=== PATIENT | female | born 2000 | race Caucasian/White ===

== ENCOUNTER 2020-08-05 19:36 | Emergency (ER) | payer SELFPAY ==
[2020-08-05] MEDS ORDERED: NORMAL SALINE 1000 ML 1,000 ML IV ONE (21:36)
--- NOTE | 2020-08-05 21:38 | ER Document Report ---
ED Medical Screen (RME) - General Chief Complaint: Breathing Difficulty Stated Complaint: SHORTNESS OF BREATH/COUGHING/DIARRHEA/HEADACHES Time Seen by Provider: 08/05/20 21:35 Notes: Patient is a 20-year-old female who presents emergency department with a chief complaint of chest tightness. Patient reports over the past few days she has had increasing chest tightness and pain to the center of her chest. She is also reported a nonproductive cough. Patient does have a Covid test pending. Patient denies sick contacts. Patient reports she is also having urinary symptoms, does have a history of urinary tract infections and states feeling the same. Patient reports she is also had diarrhea. Reports lower abdominal pain. - Related Data Allergies/Adverse Reactions: No Known Allergies Allergy (Unverified 08/05/20 21:33) Past Medical History - Social History Chew tobacco use (# tins/day): No Frequency of alcohol use: None Drug Abuse: None Physical Exam - Vital signs Vitals: Temp Pulse Resp BP Pulse Ox 98.7 F 88 16 123/45 L 100 08/05/20 19:42 08/05/20 19:42 08/05/20 19:42 08/05/20 19:42 08/05/20 19:42 - Abdominal Inspection: Normal Distension: No distension Bowel sounds: Normal Tenderness: Tender - suprapubic ttp Organomegaly: No organomegaly Course - Re-evaluation Re-evalutation: 08/05/20 21:37 I have greeted and performed a rapid initial assessment of this patient. A comprehensive ED assessment and evaluation of the patient, analysis of test results and completion of the medical decision making process will be conducted by additional ED providers. - Vital Signs Vital signs: Temp Pulse Resp BP Pulse Ox 98.7 F 88 16 123/45 L 100 08/05/20 19:42 08/05/20 19:42 08/05/20 19:42 08/05/20 19:42 08/05/20 19:42
[2020-08-05 22:17] LABS: APPEARANCE,URINE SLIGHTLY-CLOUDY; BILIRUBIN,URINE NEGATIVE (NEGATIVE); COLOR,URINE STRAW; GLUCOSE, URINE NEGATIVE (NEGATIVE); KETONES,URINE NEGATIVE (NEGATIVE); LEUKOCYTE ESTERASE,URINE SMALL (NEGATIVE); NITRITE,URINE NEGATIVE (NEGATIVE); PROTEIN,URINE NEGATIVE (NEGATIVE); URINE SPECIFIC GRAVITY 1.008; UROBILINOGEN,URINE NEGATIVE mg/dL (<2.0)
[2020-08-05 22:36] LABS: ABSOLUTE BASOPHILS # (AUTO) 0.1 10^3/uL (0.0-0.2); ABSOLUTE EOSINOPHILS # (AUTO) 0.1 10^3/uL (0.0-0.6); ABSOLUTE LYMPHOCYTES (AUTO) 3.8 10^3/uL (0.5-4.7); ABSOLUTE MONOCYTES (AUTO) 0.7 10^3/uL (0.1-1.4); ABSOLUTE NEUT (AUTO) 5.5 10^3/uL (1.7-8.2); EOSINOPHILS % (AUTO) 1.4 % (0-6); HEMATOCRIT 40.9 % (36.0-47.0); HEMOGLOBIN 14.2 g/dL (12.0-15.5); LYMPHOCYTES % (AUTO) 37.5 % (13-45); MEAN CORPUSCULAR HEMOGLOBIN 28.6 pg (27.0-33.4); MEAN CORPUSCULAR HGB CONC 34.8 g/dL (32.0-36.0); MEAN CORPUSCULAR VOLUME 82 fl (80-97); MONOCYTES % (AUTO) 6.4 % (3-13); PLATELET COUNT 333 10^3/uL (150-450); RED BLOOD COUNT 4.98 10^6/uL (3.72-5.28); RED CELL DISTRIBUTION WIDTH 13.1 % (11.5-14.0); SEGMENTED NEUTROPHILS % (AUTO) 53.7 % (42-78); TOTAL CELLS COUNTED % (AUTO) 100 %; WHITE BLOOD COUNT 10.3 10^3/uL (4.0-10.5)
[2020-08-05 22:54] LABS: ALBUMIN 4.3 g/dL (3.5-5.0); ALKALINE PHOSPHATASE 48 U/L (38-126); ANION GAP 5 (5-19); ASPARTATE AMINO TRANSFERASE 19 U/L (14-36); BILIRUBIN,DIRECT 0.2 mg/dL (0.0-0.4); BILIRUBIN,TOTAL 0.3 mg/dL (0.2-1.3); BLOOD UREA NITROGEN 10 mg/dL (7-20); CALCIUM 9.4 mg/dL (8.4-10.2); CARBON DIOXIDE 28 mmol/L (22-30); CHLORIDE 104 mmol/L (98-107); GLUCOSE 95 mg/dL (75-110); POTASSIUM 4.1 mmol/L (3.6-5.0); TOTAL PROTEIN 7.3 g/dL (6.3-8.2)
--- NOTE | 2020-08-05 23:00 | RADIOLOGY REPORT (SQ) ---
AP chest radiograph: 08/05/2020 9:58 PM [employer] History: 20-year old patient with chest tightness. Comparison: None available Findings: The cardiomediastinal silhouette is enlarged. No pneumothorax is seen. No acute airspace opacities are seen. No discrete pleural effusion is apparent. Bilateral nipple jewelry is seen. There is elevation of the right hemidiaphragm. Impression: No acute airspace opacities are seen.
[2020-08-05 23:26] VITALS: BP 130/73
[2020-08-06] MEDS ORDERED: ONDANSETRON ODT 4 MG TAB (6 TAB/ER DISP) PO PRN (00:55)
--- NOTE | 2020-08-06 00:55 | ER Document Report ---
ED General - General Chief Complaint: Breathing Difficulty Stated Complaint: SHORTNESS OF BREATH/COUGHING/DIARRHEA/HEADACHES Time Seen by Provider: 08/05/20 21:35 - HPI Notes: Patient is a 20-year-old female presents emergency department for evaluation. She has had approximately 1 week of subjective fevers, chills, anosmia, cough, vomiting, diarrhea. She has a Covid test pending. She states she felt like her breathing was a little bit worse today, so she presents to the emergency department for evaluation. She denies any pain at this time, states she has had some intermittent muscle aches. She is still urinating. Patient also complains of some urinary frequency, is concerned she might have a urinary tract infection . - Related Data Allergies/Adverse Reactions: No Known Allergies Allergy (Unverified 08/05/20 21:33) Past Medical History - General Information source: Patient - Social History Smoking Status: Current Every Day Smoker Chew tobacco use (# tins/day): No Frequency of alcohol use: None Drug Abuse: None Family History: Reviewed & Not Pertinent Past Surgical History: Reports: Other - wisdom teeth Review of Systems - Review of Systems Constitutional: See HPI EENT: See HPI Cardiovascular: No symptoms reported Respiratory: See HPI Gastrointestinal: See HPI Genitourinary: See HPI Musculoskeletal: No symptoms reported Skin: No symptoms reported Neurological/Psychological: No symptoms reported Physical Exam - Vital signs Vitals: Temp Pulse Resp BP Pulse Ox 98.7 F 88 16 123/45 L 100 08/05/20 19:42 08/05/20 19:42 08/05/20 19:42 08/05/20 19:42 08/05/20 19:42 - Notes Notes: Vital signs reviewed, please refer to chart. Head is normocephalic, atraumatic. Pupils equal round, reactive to light. Neck is supple without meningismus. Heart is regular rate and rhythm. Lungs are clear to auscultation bilaterally. Abdomen is soft, nontender, normoactive bowel sounds throughout. Extremities without cyanosis, clubbing. Posterior calves are nontender. Peripheral pulses are equal. Skin is warm and dry. Patient is awake, alert, neurological exam is nonfocal. Course - Re-evaluation Re-evalutation: 08/06/20 01:00 Patient presents emergency department for evaluation. Based on symptoms alone, I strongly suspect this patient has Covid infection. She already has a test pending elsewhere. Laboratory investigations are entirely unremarkable. She is not tachypneic. Her heart rates in 80s. She is 100% on room air. Her chest x- ray is unremarkable. I do not have a strong concern for other etiology of this patient's shortness of breath outside of Covid. She is given instructions on symptomatic medication. I do not see any utility for albuterol as she is not wheezing. Patient was told that she can lay in a supine position to help with her breathing. I will also send her home with symptomatic medications and close follow-up. She is to return the emergency department for worsening or new concerning symptoms. - Vital Signs Vital signs: Temp Pulse Resp BP Pulse Ox 98.4 F 81 18 130/73 H 100 08/05/20 23:22 08/05/20 23:22 08/05/20 23:22 08/05/20 23:22 08/05/20 23:22 - Laboratory Results Result Diagrams: 08/05/20 22:20 08/05/20 22:20 Laboratory Results Interpreted: 08/05/20 20:45 Ur Leukocyte Esterase SMALL H Critical Laboratory Results Reviewed: No Critical Results - Radiology Results Radiology Results Interpreted: 08/06/20 01:01 Radiology interpretation reveals no acute airspace disease Critical Radiology Results Reviewed: No Critical Results - EKG Interpretation by Me Additional EKG results interpreted by me: 08/06/20 01:02 Sinus arrhythmia with a rate of 74 bpm. Normal axis and intervals. No acute ST changes concerning for ischemia or infarction. No studies immediately available for comparison. Discharge - Discharge Clinical Impression: Person under investigation for COVID-19, Viral upper respiratory illness Nausea & vomiting Qualifiers: Vomiting type: unspecified Vomiting Intractability: non-intractable Qualified Code(s): R11.2 - Nausea with vomiting, unspecified Diarrhea Qualifiers: Diarrhea type: infectious Qualified Code(s): A09 - Infectious gastroenteritis and colitis, unspecified Condition: Stable Disposition: HOME, SELF-CARE Instructions: COVID-19 Guidance for Persons Under Investigation, Diarrhea, N onspecific ([facility]), Intravenous (IV) Fluids ([facility]), Upper Respiratory Illness ([facility]), Vomiting ([facility]) Additional Instructions: You are a person under investigation for infection with COVID-19. Please continue to quarantine. Zofran as needed for nausea. Please try to stay hydr ated with small, frequent sips of fluids. Tessalon Perles as needed for cough, you can also add [id number] Robitussin and/or Mucinex. There is some evidence that supplementation with zinc, vitamin D, Pepcid, melatonin may be helpful. Follow-up with your primary care provider next week. If you develop worsening or new concerning symptoms of any sort, please return immediately to the emergency department for evaluation.
--- NOTE | 2020-08-06 07:20 | EKG REPORT ---
SEVERITY:- OTHERWISE NORMAL ECG - SINUS ARRHYTHMIA, RATE [id number] : Confirmed by: Silver Torres MD 06-Aug-2020 07:20:14
== END 2020-08-06 01:20 | disposition home or self-care (01) ==
LOC: ER 19:36
DX: J06.9 Acute upper respiratory infection, unspecified (principal); B97.89 Other viral agents as the cause of diseases classified elsewhere; R11.2 Nausea with vomiting, unspecified; R19.7 Diarrhea, unspecified; R35.0 Frequency of micturition; M79.10 Myalgia, unspecified site; R06.02 Shortness of breath; F17.200 Nicotine dependence, unspecified, uncomplicated; Z20.822 Contact with and (suspected) exposure to COVID-19
CPT/HCPCS: 99285; 96360; 36415; 85025; 81025; 80053; 81001; 71045; 93005; 93010; J7030